=== PATIENT | male | born 1980 | race Caucasian/White ===

== ENCOUNTER 2023-07-23 22:56 | Emergency (ER) | payer SELFPAY ==
[~2023-07-23] VITALS: Ht 170.2 cm; Wt 106.6 kg
[2023-07-23 23:00] VITALS: BP 135/95; PULSE 97; RESP 16; TEMP 97.1; O2SAT 97
[2023-07-23] MEDS ORDERED: APIX5TAB PO ×4 (23:29→23:36)
[2023-07-23] MEDS ORDERED: APIXABAN 2.5 MG TAB PO ONE (23:30)
== END 2023-07-24 00:06 ==
LOC: MED 22:56
DX: I82.492 Acute embolism and thrombosis of other specified deep vein of left lower extremity (principal); Z79.899 Other long term (current) drug therapy
CPT/HCPCS: 99283